=== PATIENT | female | born 1935 | race Caucasian/White ===

== ENCOUNTER 2019-08-30 02:15 | Observation (INO) | payer MEDICARE, MEDICAID ==
[2019-08-30 03:07] LABS: #Eosinphils 0.2 thou/uL (0.0-0.7); #Lymphocytes 4.6 thou/uL (1.20-3.40); #Monocytes 0.6 thou/uL (0.11-0.59); #Neutrophils 6.4 thou/uL (1.40-6.50); %Basophils 0.4 % (0.0-1.0); %Eosinophils 1.9 % (0.0-10.0); %Monocytes 4.9 % (0.0-10.0); %Neutrophils 53.9 % (42.0-75.0); Hemoglobin 13.4 g/dL (12.0-16.0); Mean Corpuscular HGB CONC 33.8 g/dL (32.0-36.0); Mean Corpuscular Hemoglobin 29.7 pg (27.0-31.0); Mean Corpuscular Volume 87.7 fL (78.0-98.0); Mean Platelet Volume 8.3 fL (7.4-10.4); Platelet Count 203 thou/uL (130-400); RBC Distribution Width 14.1 % (11.5-14.5); Red Blood Cell (RBC) Count 4.51 mill/uL (4.20-5.40); White Blood Cell (WBC) Count 11.8 thou/uL (4.8-10.8)
[2019-08-30 03:28] LABS: ALT (SGPT) 12 U/L (8-55); AST (SGOT) 19 U/L (5-34); Alkaline Phosphatase 188 U/L (40-110); Anion Gap 15 mmol/L (10-20); BUN (Urea Nitrogen) 9 mg/dL (9.8-20.1); Bilirubin, Total 0.6 mg/dL (0.2-1.2); Calc. Creatinine Clearance 0 mL/min (70-130); Calcium 8.2 mg/dL (7.8-10.44); Carbon Dioxide 18 mmol/L (23-31); Chloride 104 mmol/L (98-107); Estimated GFR-MDRD 48; Globulin 2.6 g/dL (2.4-3.5); Glucose 304 mg/dL (83-110); Potassium 3.7 mmol/L (3.5-5.1); Protein, Total 5.6 g/dL (6.0-8.3); Sodium 133 mmol/L (136-145)
[2019-08-30] MEDS ORDERED: Insulin Regular 300 UNITS/3 ML VIAL ONE ×2 (03:46→03:49)
--- NOTE | 2019-08-30 04:45 | PDOC.HHP ---
Hospitalist HPI - History of Present Illness hyperglycemia, dizziness, polyuria History of Present Illness: Patient is an 84 year old female, with history of insulin dependant diabetes who presents to ED via transfer from [facility] for dizziness, polyuria, hyperglycemia reported as 500 earlier today, now down to 400 at time of visit. At other ED, WBC 12k, lactic acid elevated at 3.3, she was treated for sepsis with IVF, rocephin, vancomycin. patient denies any chest pain, fever .She reports dysuria earlier, a jurado was placed at outside er, UA did not show infection. CXR was normal as well. Her vital signs are notable for tachycardia but otherwise unremarkable. patient takes insulin 25 unts lantus at night, has not missed any doses, checks sugars regularily and they are usually around 100, she does not know why any of this has happened. she reports cardiac hisotry but no current chest pain. Workup at other ED included labs with WBC 67573, Hgb 15, lactic acid 3.3, BNP 67, trop WNL, Na+ 132, K+ 3.4, CO2 21, creatinine 1.5, glu 400, alkaline phosphatase 250, UA nrml save presence of glucose; CXR NAD; EKG findings of sinus tach, no ischemia. Patient has received 2L IVF, rocephin and vancomycin in our ED. Hospitalist ROS - Review of Systems Constitutional: denies: fever, chills Eyes: denies: pain, vision change ENT: denies: throat pain, throat swelling Respiratory: denies: cough, dry Cardiovascular: denies: chest pain, palpitations Gastrointestinal: denies: nausea, vomiting, diarrhea Genitourinary: reports: frequency. denies: dysuria, incontinence Musculoskeletal: denies: neck pain, shoulder pain Skin: denies: rash, lesions Neurological: denies: weakness, numbness Other: endocrine: +polyuria, +polydypsia - Medication Medications: meTOPROLOL succinate SatAug 30, 2019 02:21 JH Bazzi, Rose TABLET, EXTENDED RELEASE 24 HR : Strength - 50 mg : ORAL Patient Dose: 50 mg Oral 2 times a day. omeprazole SatAug 30, 2019 02:21 JH Bazzi, Rose CAPSULE,DELAYED RELEASE ( ENTERIC COATED) : Strength - 20 mg : ORAL Patient Dose: 20 mg Oral once a day. allopurinol SatAug 30, 2019 02:21 JH Bazzi, Rose TABLET : Strength - 300 mg : ORAL Patient Dose: 300 mg Oral once a day. Ultram Sun Aug 30, 2019 02:22 JH Bazzi, Rose TABLET : Strength - 50 mg : ORAL Patient Dose: Unknown. Hospitalist History - Past Medical History Other Medical History: Past medical history includes cardiac history, myocardial infarction, cardiac stents, neurological disease, Lumbar disc disease. Chronic Back Pain, endocrine disease, hypoparathyroidism,history of hypertension, which has been treated, neurological disease, CVA unknown if hemorrhagic or ischemic., Notes: GOUT, HYPOTHYROID, Past medical history includes history of hyperlipidemia, high cholesterol, SEASONAL ALLERGIES, [place] X2 IN 2000 TREATED WITH 4 STENTS, STROKE IN 2006- NO DEFECITS,. - Past Surgical History Other Surgical History: Surgical history of cholecystectomy. Cardiac Stents,. - Family History Family History: reports: no pertinent history - Social History Other Social History: Patient denies alcohol use, Patient denies drug use, Patient has no smoking history. - Exam General Appearance: NAD, awake alert Eye: PERRL, anicteric sclera ENT: normocephalic atraumatic, no oropharyngeal lesions, moist mucosa Neck: supple, symmetric, no JVD, no thyromegaly, no lymphadenopathy, no carotid bruit Heart: RRR, no murmur, no gallops, no rubs, normal peripheral pulses Respiratory: CTAB, no wheezes, no rales, no ronchi, normal chest expansion, no tachypnea, normal percussion Gastrointestinal: soft, non-tender, non-distended, normal bowel sounds, no palpable masses, no hepatomegaly, no splenomegaly, no bruit Extremities: no cyanosis, no clubbing, no edema Skin: normal turgor, no lesions, no rashes Neurological: cranial nerve grossly intact, normal sensation to touch, no weakness, no focal deficits, no new deficit Musculoskeletal: normal tone, normal strength, no muscle wasting Psychiatric: normal affect, normal behavior, A&O x 3 Hospitalist Results - Labs Result Diagrams: 08/30/19 02:45 08/30/19 02:45 Lab results: WBC 11.8 thou/uL (4.8-10.8) H 08/30/19 02:45 Hgb 13.4 g/dL (12.0-16.0) 08/30/19 02:45 Hct 39.6 % (36.0-47.0) 08/30/19 02:45 MCV 87.7 fL (78.0-98.0) 08/30/19 02:45 Plt Count 203 thou/uL (130-400) 08/30/19 02:45 Neutrophils % 53.9 % (42.0-75.0) 08/30/19 02:45 Sodium 133 mmol/L (136-145) L 08/30/19 02:45 Potassium 3.7 mmol/L (3.5-5.1) 08/30/19 02:45 Chloride 104 mmol/L (98-107) 08/30/19 02:45 Carbon Dioxide 18 mmol/L (23-31) L 08/30/19 02:45 BUN 9 mg/dL (9.8-20.1) L 08/30/19 02:45 Creatinine 1.09 mg/dL (0.6-1.1) 08/30/19 02:45 Glucose 304 mg/dL (83-110) H 08/30/19 02:45 Lactic Acid 2.4 mmol/L (0.5-2.2) H 08/30/19 02:45 Calcium 8.2 mg/dL (7.8-10.44) 08/30/19 02:45 Total Bilirubin 0.6 mg/dL (0.2-1.2) 08/30/19 02:45 AST 19 U/L (5-34) 08/30/19 02:45 ALT 12 U/L (8-55) 08/30/19 02:45 Alkaline Phosphatase 188 U/L (40-110) H 08/30/19 02:45 Serum Total Protein 5.6 g/dL (6.0-8.3) L 08/30/19 02:45 Albumin 3.0 g/dL (3.4-4.8) L 08/30/19 02:45 Additional comment: BP: 107/79, Pulse: 111, Resp: 12, Temp: 98.1 (Oral), Pain: 0, O2 sat: 97 on Room Air, Time: 08/30/2019 02:22. - EKG Interpretation EKG: ED interpretation - sinus tachycardia Hospitalist H&P A/P - Problem (1) Hyponatremia Code(s): E87.1 - HYPO-OSMOLALITY AND HYPONATREMIA Status: Acute Assessment and Plan: likely pseudohyponatremia, recheck BMP now (2) Hyperglycemia Code(s): R73.9 - HYPERGLYCEMIA, UNSPECIFIED Status: Acute Assessment and Plan: start SSI and home dose of lantus, no cleare explanation for current hyperglycemic state (3) Elevated lactic acid level Code(s): R79.89 - OTHER SPECIFIED ABNORMAL FINDINGS OF BLOOD CHEMISTRY Status : Acute Assessment and Plan: I bleieve this is a type 2 lactic acidosis, no clinical sepsis. continue hydration and blood sugar management as above (4) Leukocytosis Code(s): D72.829 - ELEVATED WHITE BLOOD CELL COUNT, UNSPECIFIED Status: Acute Assessment and Plan: likely demargination or stress response, no obvious infections observed (5) Diabetes 1.5, managed as type 2 Code(s): E13.9 - OTHER SPECIFIED DIABETES MELLITUS WITHOUT COMPLICATIONS Status: Acute Assessment and Plan: start SSI, resume home dose lantus, continue hydration, sugar checks AC HS (6) Hypertension Code(s): I10 - ESSENTIAL (PRIMARY) HYPERTENSION Status: Acute Assessment and Plan: resume home medications (7) Hypothyroid Code(s): E03.9 - HYPOTHYROIDISM, UNSPECIFIED Status: Acute Assessment and Plan: resume home medications (8) Urinary retention Code(s): R33.9 - RETENTION OF URINE, UNSPECIFIED Status: Acute - Plan Plan: jurado placed at outside ER, wean once acute phase of illness over
[2019-08-30 05:50] VITALS: BMI 29.9
[2019-08-30] MEDS ORDERED: Sodium Chloride 0.9% 1,000 ML IV SCH ×2 (06:15→06:30)
[2019-08-30] MEDS ORDERED: Ondansetron PF 4 MG/2 ML Vial IVP PRN (06:18)
[2019-08-30] MEDS ORDERED: Acetaminophen 325 MG TAB PO PRN (06:18)
[2019-08-30] MEDS ORDERED: Bisacodyl 10 MG SUPP PR PRN (06:18)
[2019-08-30] MEDS ORDERED: HYDROcodone/Acetaminophen 7.5/325 mg Tablet PO PRN (06:18)
[2019-08-30] MEDS ORDERED: HYDROcodone/Acetaminophen 5/325 mg Tablet PO PRN (06:18)
[2019-08-30] MEDS ORDERED: Senokot S 8.6-50 MG TAB PO PRN (06:18)
[2019-08-30] MEDS ORDERED: Bisacodyl 5 MG TAB PO PRN (06:18)
[2019-08-30] MEDS ORDERED: traMADol HCl 50 MG TAB PO PRN (06:20)
[2019-08-30] MEDS ORDERED: Dextrose 5% in Water 1,000 ML IV PRN (06:21)
[2019-08-30] MEDS ORDERED: Dextrose 50% Abboject 50 ML SYRINGE SLOW IVP PRN (06:21)
[2019-08-30 07:25] LABS: Lactic Acid 1.4 mmol/L (0.5-2.2)
[2019-08-30 07:29] LABS: Anion Gap 12 mmol/L (10-20); BUN (Urea Nitrogen) 7 mg/dL (9.8-20.1); Calc. Creatinine Clearance 43 mL/min (70-130); Carbon Dioxide 19 mmol/L (23-31); Chloride 107 mmol/L (98-107); Estimated GFR-MDRD 56; Glucose 185 mg/dL (83-110); Potassium 3.1 mmol/L (3.5-5.1); Sodium 135 mmol/L (136-145)
[2019-08-30 07:44] LABS: Band 14 % (5-11); Eosinophils 2 % (0-10); Hemoglobin 12.7 g/dL (12.0-16.0); Lymphocytes 28 % (21-51); MDiff Complete? YES; Mean Corpuscular HGB CONC 33.5 g/dL (32.0-36.0); Mean Corpuscular Hemoglobin 29.6 pg (27.0-31.0); Mean Corpuscular Volume 88.6 fL (78.0-98.0); Mean Platelet Volume 7.8 fL (7.4-10.4); Monocytes 6 % (0-10); Neutrophil 49 % (42-75); Platelet Count 191 thou/uL (130-400); RBC Distribution Width 14.1 % (11.5-14.5); Reactive Lymphocytes 1 % (0-10); Red Blood Cell (RBC) Count 4.27 mill/uL (4.20-5.40); White Blood Cell (WBC) Count 9.7 thou/uL (4.8-10.8)
[2019-08-30] MEDS ORDERED: Enoxaparin Sodium 30 MG/0.3 ML SYRINGE SC SCH (09:00)
[2019-08-30] MEDS: Allopurinol 300 MG TAB PO SCH (09:15)
[2019-08-30] MEDS: Famotidine 20 MG TAB PO SCH (09:15)
[2019-08-30] MEDS: HumaLOG 300 UNITS/3 ML VIAL SC PRN ×2 (12:12→17:27)
[2019-08-30 12:44] LABS: Bilirubin Negative (Negative); Blood, Urine Negative (Negative); Glucose, Urine (Dipstick) 500 mg/dL (Negative); Leukocyte Negative (Negative); Nitrite Negative (Negative); Protein, Urine (Dipstick) Negative (Neg-Trace); Urobilinogen 0.2 mg/dL (Less than 2)
[2019-08-30 12:47] LABS: Clarity Clear (Clear)
[2019-08-30 12:52] LABS: Bacteria/HPF 2+ HPF (None Seen); RBC/HPF None Seen HPF (0-3); Squamous Epithelial 0-3 HPF (0-3); WBC/HPF 0-3 HPF (0-3); Yeast-Budding Rare HPF (None Seen)
[2019-08-30] MEDS ORDERED: Potassium Chloride 20 MEQ TAB PO SCH (16:45)
[2019-08-30] MEDS: Insulin Glargine 25 UNITS in Pre-Filled Syringe 1 EACH SC SCH (20:16)
[2019-08-31 06:19] LABS: Band 8 % (5-11); Hemoglobin 12.5 g/dL (12.0-16.0); Lymphocytes 48 % (21-51); MDiff Complete? YES; Mean Corpuscular HGB CONC 33.2 g/dL (32.0-36.0); Mean Corpuscular Volume 90.5 fL (78.0-98.0); Mean Platelet Volume 8.3 fL (7.4-10.4); Monocytes 4 % (0-10); Neutrophil 40 % (42-75); Platelet Count 191 thou/uL (130-400); RBC Distribution Width 14.4 % (11.5-14.5); Red Blood Cell (RBC) Count 4.15 mill/uL (4.20-5.40)
[2019-08-31 06:42] LABS: Anion Gap 12 mmol/L (10-20); BUN (Urea Nitrogen) 6 mg/dL (9.8-20.1); Calc. Creatinine Clearance 43 mL/min (70-130); Calcium 8.3 mg/dL (7.8-10.44); Carbon Dioxide 18 mmol/L (23-31); Chloride 111 mmol/L (98-107); Estimated GFR-MDRD 56; Glucose 213 mg/dL (83-110); Potassium 4.1 mmol/L (3.5-5.1); Sodium 137 mmol/L (136-145)
[2019-08-31] MEDS: Famotidine 20 MG TAB PO SCH (09:38)
[2019-08-31] MEDS: Enoxaparin Sodium 40 MG/0.4 ML SYRINGE SC SCH (09:39)
[2019-08-31] MEDS: Allopurinol 300 MG TAB PO SCH (09:39)
[2019-08-31] MEDS: HumaLOG 300 UNITS/3 ML VIAL SC PRN ×2 (12:47→19:37)
--- NOTE | 2019-08-31 15:30 | PRG ---
DATE OF SERVICE: 08/31/2019 SUBJECTIVE: The patient is seen and examined at the bedside. She does not have much complaints to offer. She feels good. OBJECTIVE: VITAL SIGNS: Blood pressure is 125/60, pulse is 69, respiratory rate is 20, O2 saturation 98% on room air, and her temperature is 98 and maximal temperature is 99.0. HEENT: Her head is atraumatic and normocephalic. Eyes are PERRLA. Sclerae are nonicteric. Oral mucosa is moist. NECK: Supple. LUNGS: Clear. HEART: S1 and S2 normal. No S3. No S4. ABDOMEN: Soft, nontender, and nondistended. EXTREMITIES: 1+ peripheral edema similar bilaterally in the lower extremities. NEUROLOGIC: She is following my commands. She moves all 4 extremities. There is no any motor deficit. LABORATORY DATA: Labs showed white count of 9.0, hemoglobin 12.5, hematocrit 37.6, platelet count is 191,000. Sodium is 137, potassium 4.1, chloride 111, CO2 of 18, BUN 6, and creatinine 0.95. Glycemia is ranging from 183 to 368. Urine culture negative. IMPRESSION: 1. Hyperglycemia. The patient is put back on 15 units of insulin Humulin R before each meal and she will continue her 25 units of the long-acting at night. 2. Leukocytosis, resolved. 3. Diabetes mellitus, type 2. 4. Hypertension. 5. Hypothyroidism. 6. Urinary retention. PLAN: Plan is to discontinue Nickerson catheter. Start her on Humulin R 15 units before each meal. Continue her long-acting insulin at 25 units at bedtime. Her urine culture came back negative and I do not think there was any sepsis. Her two blood cultures drawn in the emergency room came back negative. We will keep her overnight to stabilize her glycemia since it is still running around 250, 300 and above, and as soon as adjustments are made, she can be discharged home. Job ID: [id number]
[2019-08-31] MEDS: Insulin Regular 300 UNITS/3 ML VIAL SC SCH (17:12)
[2019-08-31] MEDS: Insulin Glargine 25 UNITS in Pre-Filled Syringe 1 EACH SC SCH (19:41)
[2019-09-01] MEDS: Enoxaparin Sodium 40 MG/0.4 ML SYRINGE SC SCH (07:47)
[2019-09-01] MEDS: Insulin Regular 300 UNITS/3 ML VIAL SC SCH ×2 (08:54→10:39)
[2019-09-01] MEDS: Famotidine 20 MG TAB PO SCH (08:55)
[2019-09-01] MEDS: Allopurinol 300 MG TAB PO SCH (08:55)
[2019-09-01] MEDS: HumaLOG 300 UNITS/3 ML VIAL SC PRN (10:37)
[2019-09-01 11:32] VITALS: BP 128/60; TEMP 97.9
--- NOTE | 2019-09-01 18:33 | DIS ---
DATE OF ADMISSION: 08/30/2019 DATE OF DISCHARGE: 09/01/2019 DISCHARGE DISPOSITION: To home. PRIMARY DISCHARGE DIAGNOSIS: Diabetes mellitus type 2, uncontrolled. SECONDARY DISCHARGE DIAGNOSES: History of myocardial infarction with prior stent, lumbar disk disease with chronic back pain, hypoparathyroidism, hypertension, history of prior cerebrovascular accident, gout, hypothyroidism, dyslipidemia. PROCEDURES DONE DURING HOSPITALIZATION: Blood cultures x2, no growth. Urine culture, no growth. Initial white count of 12 with discharge numbers of 9, H and H 12 and 37, platelet count 191, MCV is 90. Discharge fingerstick glucose is ranging from 87-276. BNP 64 is initial serum glucose was 406. DISCHARGE MEDICATIONS: 1. Allopurinol 300 mg p.o. daily. 2. Lantus home dose as before. 3. Metoprolol extended release 50 mg twice daily. 4. Omeprazole 20 mg daily. 5. Ultram p.r.n. for pain. ALLERGIES: NO KNOWN DRUG ALLERGIES. DISCHARGE PLAN: The patient to check fingerstick glucose twice daily and record for a period of 10 days to follow up with her primary care physician for changes in her diabetic medication. She needs to follow up with her primary care physician Dr. Lennox Bravo in [facility]. BRIEF COURSE DURING HOSPITALIZATION: The patient initially got admitted on the for increasing urination, frequency, and dizziness. Her initial fingerstick glucose was more than 400. She normally takes 25 units at night. She had a complete workup for possible infections and they have all been negative. Her fingerstick glucose is fairly stable at the time of discharge. She is advised to check fingerstick glucose twice daily for a period of 10 days and record to follow up with primary care physician for changes in her medication. She is ambulating and eating well prior to discharge. She was counseled with regards to dietary compliance. I have counseled her to see her primary care physician, Dr. Lennox Bravo in a week. Please note, I have seen and examined the patient on the day of discharge. She likely is noncompliant with her lantus. Job ID: [id number] [facility]
== END 2019-09-01 12:26 | disposition home or self-care (01) ==
LOC: ERS 02:15 → ONC 03:45
PROVIDERS: ADMIT Internal Medicine; ATTEND Internal Medicine
DX: E11.65 Type 2 diabetes mellitus with hyperglycemia (principal); I10 Essential (primary) hypertension; D72.829 Elevated white blood cell count, unspecified; E03.9 Hypothyroidism, unspecified; R33.9 Retention of urine, unspecified; E87.1 Hypo-osmolality and hyponatremia; R79.89 Other specified abnormal findings of blood chemistry; I25.2 Old myocardial infarction; Z79.4 Long term (current) use of insulin; Z79.899 Other long term (current) drug therapy
CPT/HCPCS: 80048 ×2; 80053; 81001; 82962 ×3; 83605; 83880; 85007 ×2; 85025; 85027 ×2; 87086; 96372; 96374; 97139 ×5; 99285; G0378 ×4; 36415; 36416; J1650; J1815

== ENCOUNTER 2019-11-04 21:29 | Inpatient (IN) | payer MEDICARE, MEDICAID ==
[2019-11-05 01:14] VITALS: BMI 23.6
--- NOTE | 2019-11-05 01:46 | PDOC.HHP ---
Hospitalist HPI - History of Present Illness Jaundice History of Present Illness: Patient is an 84 year old with PMH including IDDM who presents for gradual onset of jaundice, patient visibly jaundiced to head and eyes, went to [facility], where labs revealed Tbili of 22, AST 121, ALT 83, alk phos 976, CT abdomen performed revealing suspected uncinate pancreatic mass 3.2x2.2cm in size. severe intrahepatic dilation noted as well, with dilation of CBD and pancreatic duct. There were also lung nodules with largest in RLL measuring 1.4cm. Overall suspicious for metastatic cancer per radiology report. Patinet feels normal besides the jaundice, no abdominal pain/nausea/vomiting/ melena/hematochezia, no shortness of breath or chest pain. I discussed consultations I plan to order, including GI for possible biliary stent for obstructive jaundice. Patient stated at that point that she did not want any procedures, but was willing to talk to specialists to hear options. Hospitalist ROS - Review of Systems Constitutional: denies: fever, chills Eyes: reports: other (yellow eyes). denies: pain ENT: denies: nose pain, throat pain Respiratory: denies: cough, shortness of breath Cardiovascular: denies: chest pain, palpitations Gastrointestinal: reports: other (jaundice). denies: nausea, vomiting, abdominal pain, diarrhea, constipation, melena, hematochezia Genitourinary: denies: dysuria, frequency Musculoskeletal: denies: neck pain, shoulder pain, foot pain Skin: reports: chandler. denies: rash, lesions Neurological: denies: weakness, numbness, seizures All other systems reviewed; all pertinent +/- noted in HPI/Subj Hospitalist History - Past Medical History Other Medical History: Past medical history includes cardiac history, myocardial infarction, cardiac stents, neurological disease, Lumbar disc disease. Chronic Back Pain, endocrine disease, hypoparathyroidism,history of hypertension, which has been treated, neurological disease, CVA unknown if hemorrhagic or ischemic., Notes: GOUT, HYPOTHYROID, Past medical history includes history of hyperlipidemia, high cholesterol, SEASONAL ALLERGIES, [place] X2 IN 2000 TREATED WITH 4 STENTS, STROKE IN 2006- NO DEFECITS,. - Past Surgical History Other Surgical History: Surgical history of cholecystectomy. Cardiac Stents,. - Family History Other Family History: Family History: reports: no pertinent history - Social History Other Social History: Patient denies alcohol use, Patient denies drug use, Patient has no smoking history. - Exam General Appearance: NAD, awake alert Eye: PERRL, scleral icterus ENT: normocephalic atraumatic, moist mucosa Neck: supple, no JVD Heart: RRR, no murmur, no gallops Respiratory: CTAB, no wheezes, no rales Gastrointestinal: soft, non-tender, non-distended, normal bowel sounds Extremities: no cyanosis, no clubbing, no edema Skin - other findings: jaundiced througout Neurological: cranial nerve grossly intact, normal sensation to touch, no weakness, no focal deficits, no new deficit Psychiatric: normal affect, normal behavior, A&O x 3 Hospitalist Results - Labs Lab results: outside labs and imaging reviewed, see HPI Hospitalist H&P A/P - Plan Plan: Patient is an 84 year old female with PMH IDDM, HTN, hypothyroid admitted for jaundice, being treated for: # acute liver failure - appears obstructive w/ cholestatic pattern of LFTs and CT findings of pancreatic mass w/ significant duct dilation # pancreatic mass - admitted to floor as transfer, consult GI and oncology and palliative care team # lung nodules - suspicious for metastatic disease, consult oncology and palliative care team # IDDM - continue home meds once med rec complete # HTN - continue home meds once med rec complete, PRNs ordered # hypothyroidism - continue home meds once med rec complete
[2019-11-05] MEDS ORDERED: HYDROcodone/Acetaminophen 5/325 mg Tablet PO PRN (02:12)
[2019-11-05] MEDS ORDERED: Acetaminophen 325 MG TAB PO PRN (02:12)
[2019-11-05] MEDS ORDERED: Bisacodyl 5 MG TAB PO PRN (02:12)
[2019-11-05] MEDS ORDERED: Loperamide HCl 2 MG CAP PO PRN (02:12)
[2019-11-05] MEDS ORDERED: Dextrose 5% in Water 1,000 ML IV PRN (02:12)
[2019-11-05] MEDS ORDERED: Bisacodyl 10 MG SUPP PR PRN (02:12)
[2019-11-05] MEDS ORDERED: Dextrose 50% Abboject 50 ML SYRINGE SLOW IVP PRN (02:12)
[2019-11-05] MEDS ORDERED: Promethazine HCl 12.5 MG in Sodium Chloride 0.9% 50 ML IVPB PRN (02:15)
[2019-11-05] MEDS ORDERED: hydrALAZINE 20 MG/ML VIAL SLOW IVP PRN (02:15)
[2019-11-05] MEDS ORDERED: Ondansetron PF 4 MG/2 ML Vial IVP PRN (02:15)
[2019-11-05] MEDS ORDERED: cloNIDine 0.1 MG TAB PO PRN (02:15)
[2019-11-05] MEDS ORDERED: Morphine 2 MG/ML SYRINGE SLOW IVP PRN (02:15)
[2019-11-05 06:10] LABS: Prothrombin Time 13.2 SEC (12.0-14.7)
[2019-11-05 06:22] LABS: Hemoglobin 12.4 g/dL (12.0-16.0); Mean Corpuscular Hemoglobin 30.7 pg (27.0-31.0); Mean Corpuscular Volume 90.1 fL (78.0-98.0); Mean Platelet Volume 9.8 fL (7.4-10.4); Platelet Count 247 thou/uL (130-400); RBC Distribution Width 19.1 % (11.5-14.5); Red Blood Cell (RBC) Count 4.03 mill/uL (4.20-5.40); White Blood Cell (WBC) Count 11.3 thou/uL (4.8-10.8)
[2019-11-05 06:25] LABS: Band 7 % (5-11); Eosinophils 2 % (0-10); Lymphocytes 22 % (21-51); MDiff Complete? YES; Metamyelocyte 1 % (0-0); Monocytes 1 % (0-10); Myelocyte 1 % (0-0); Neutrophil 66 % (42-75); Platelet Morphology Comment Appears Adequate; Polychromasia SLIGHT = 2-3 cells (100X) (0-2/hpf); Target Cells SLIGHT = 2-5 cells (100X) (0-1/hpf)
[2019-11-05 06:29] LABS: ALT (SGPT) 69 U/L (8-55); AST (SGOT) 103 U/L (5-34); Albumin 2.4 g/dL (3.4-4.8); Alkaline Phosphatase 872 U/L (40-110); Anion Gap 13 mmol/L (10-20); BUN (Urea Nitrogen) 13 mg/dL (9.8-20.1); Bilirubin, Total 20.5 mg/dL (0.2-1.2); Calc. Creatinine Clearance 44 mL/min (70-130); Calcium 8.1 mg/dL (7.8-10.44); Carbon Dioxide 16 mmol/L (23-31); Chloride 104 mmol/L (98-107); Estimated GFR-MDRD 62; Glucose 282 mg/dL (83-110); Phosphorus 2.1 mg/dL (2.3-4.7); Potassium 3.4 mmol/L (3.5-5.1); Protein, Total 5.1 g/dL (6.0-8.3); Sodium 130 mmol/L (136-145)
[2019-11-05 06:53] LABS: Bilirubin, Direct 14.5 mg/dL (0.1-0.3)
[2019-11-05] MEDS: Enoxaparin Sodium 40 MG/0.4 ML SYRINGE SC SCH (07:57)
[2019-11-05] MEDS: HumaLOG 300 UNITS/3 ML VIAL SC PRN ×2 (11:28→20:52)
--- NOTE | 2019-11-05 15:38 | CON ---
DATE OF CONSULTATION: REASON FOR CONSULTATION: Pancreatic mass. HISTORY OF PRESENT ILLNESS: Ms. Velasquez is an 84-year-old female, who presented to her primary care in [place], [place] and was noted to be severely jaundiced. She was then referred to the [facility]. She underwent routine labs, which showed a bilirubin of 20. She then had a CT of her abdomen and pelvis. There was severe intrahepatic and extrahepatic biliary dilatation. She had a 3.2-cm mass in the alternate process of the pancreas. She had abnormal mucosal thickening of the duodenal sweep in the region of the ampulla. She had osteoporotic compression fractures of T10, T11, T12, L1, L2, L3, and L4 vertebral bodies. She was transferred to this facility for further workup. We were asked to see the patient regarding diagnosis. The patient was seen at bedside. She had no complaints at this time. Her daughter was at bedside. PAST MEDICAL HISTORY: CHF, hypertension, diabetes, hypercholesterolemia, GERD, anxiety, hypothyroidism, and OR. PAST SURGICAL HISTORY: Cardiac stent placement. ALLERGIES: NO KNOWN DRUG ALLERGIES. HOME MEDICATIONS: 1. Metoprolol. 2. Insulin. 3. Prilosec. 4. Tramadol. 5. Allopurinol. 6. Potassium. FAMILY HISTORY: Her son from colon cancer. SOCIAL HISTORY: Single, has 4 children. Lives with her daughter and 8th granddaughter. No alcohol, tobacco, or illicit drug use. REVIEW OF SYSTEMS: Ten-point review of systems is negative. PHYSICAL EXAMINATION: VITAL SIGNS: Temperature is 98.5, pulse is 91, respiratory rate 18, blood pressure is 100/65, and she is 94% on room air. GENERAL: This is a jaundiced female, in no acute distress. HEENT: Normocephalic, atraumatic. Pupils are equal and reactive to light. Sclera are icteric. NECK: Supple. CARDIOVASCULAR: Regular rate and rhythm. LUNGS : Respiratory is unlabored. ABDOMEN: Distended. EXTREMITIES: No clubbing or cyanosis. SKIN: Jaundice. NEUROLOGICAL: Nonfocal. PERTINENT LABS AND X-RAYS: Current WBC is 11.3, hemoglobin 12.4, hematocrit 36.3, platelet count is 247,000, she got 66% neutrophils, 7% bands, 22% lymphocytes. PT is 13.2, INR is 1.0. Sodium is 130, potassium 3.4, chloride 104, CO2 of 16, BUN is 13, creatinine 0.87, calcium is 8.1, phosphorus 2.1, bilirubin is 20.5, direct bilirubin is 14.5, AST is 103, ALT 69, alkaline phosphatase is 72, serum total protein 5.1, and albumin 2.4. ASSESSMENT: Pancreatic mass with biliary obstruction and jaundice. DISCUSSION: The patient was seen at bedside with daughter present. We discussed biliary stent placement and biopsy. The patient adamantly refused for even stent placement. She did not want to discuss anything further, but stated she wants to go home on hospice. I did briefly discuss what would be the normal process with the daughter including stent biopsy and then treatment likely with chemotherapy. Our clinic information was provided. If the patient change her mind, we will have case management set up hospice at home. Thank you for the consult. Job ID: [id number]
--- NOTE | 2019-11-05 17:10 | PDOC.HOSPP ---
- Subjective Encounter Date: 11/05/19 Encounter Time: 09:40 Subjective: awake, no abd pain or itching now - Objective Vital Signs & Weight: Vital Signs (12 hours) Temp Pulse Resp BP Pulse Ox 11/05/19 11:30 98.0 F 96 18 111/59 L 95 11/05/19 08:00 98.5 F 91 18 100/65 94 L 11/05/19 07:59 83 Weight Weight 129 lb 2 oz I&O: 11/04/19 11/05/19 11/06/19 06:59 06:59 06:59 Intake Total 480 Balance 480 Result Diagrams: 11/05/19 05:48 11/05/19 05:48 Additional Labs: Accuchecks 11/05/19 11/05/19 11/05/19 16:31 11:24 06:06 POC Glucose 190 H 348 H 303 H Hospitalist ROS - Medication Medications: Active Medications Generic Name Dose Route Start Last Admin Trade Name Freq PRN Reason Stop Dose Admin Enoxaparin Sodium 40 mg 11/05/19 09:00 11/05/19 07:57 Lovenox SC 40 mg 0900 MERY Administration Hydralazine HCl 10 mg 11/05/19 02:15 11/05/19 07:59 Apresoline SLOW IVP 10 mg Q6H PRN Administration SBP GREATER THAN 160 Insulin Human Lispro 0 units 11/05/19 02:12 11/05/19 11:28 Humalog SC 10 unit .MODERATE SLIDING SC PRN Administration Moderate Correctional Scale Lactulose 30 gm 11/05/19 09:00 11/05/19 08:00 Lactulose PO 30 gm DAILY MERY Administration Ondansetron HCl 4 mg 11/05/19 02:15 11/05/19 09:26 Zofran IVP 4 mg Q6H PRN Administration Nausea/Vomiting use 1st Pantoprazole Sodium 40 mg 11/05/19 09:00 11/05/19 07:59 Protonix PO 40 mg DAILY MERY Administration - Exam General Appearance: awake alert Eye: scleral icterus ENT: no oropharyngeal lesions, moist mucosa Neck: supple, no JVD Heart: RRR, no murmur Respiratory: no wheezes, no rales Gastrointestinal: soft, non-tender, non-distended, normal bowel sounds Extremities: no clubbing, no edema Neurological: cranial nerve grossly intact, no focal deficits Psychiatric: normal affect, A&O x 3 Hosp A/P (1) Pancreatic mass Status: Acute (2) Obstructive jaundice Code(s): K83.1 - OBSTRUCTION OF BILE DUCT Status: Acute (3) DM type 2 (diabetes mellitus, type 2) Status: Chronic Qualifiers: Diabetes mellitus termite treater helper insulin use: with termite treater helper use (4) Hypertension Code(s): I10 - ESSENTIAL (PRIMARY) HYPERTENSION Status: Chronic Qualifiers: Hypertension type: essential hypertension Qualified Code(s): I10 - Essential (primary) hypertension (5) Hypothyroid Code(s): E03.9 - HYPOTHYROIDISM, UNSPECIFIED Status: Chronic Qualifiers: Hypothyroidism type: unspecified Qualified Code(s): E03.9 - Hypothyroidism , unspecified (6) CAD (coronary artery disease) Code(s): I25.10 - ATHSCL HEART DISEASE OF [place] CORONARY ARTERY W/O ANG PCTRS Status: Chronic Qualifiers: Coronary Disease-Associated Artery/Lesion type: [place] artery [place] vs. transplanted heart: [place] heart Associated angina: without angina Qualified Code(s): I25.10 - Atherosclerotic heart disease of [place] coronary artery without angina pectoris (7) Dyslipidemia Code(s): E78.5 - HYPERLIPIDEMIA, UNSPECIFIED Status: Chronic - Plan d/w patient, daughter and grand daughter at bedside she does not want any active treatment done including biliary stent/per cut biliary drain or biopsy is DNAR, discussed at bedside is considering hospice at home may dc anytime if above is set up
--- NOTE | 2019-11-05 22:46 | CON ---
DATE OF CONSULTATION: 11/05/2019 CHIEF COMPLAINT: Jaundice. HISTORY OF PRESENT ILLNESS: Ms. Velasquez is an 84-year-old woman, who was taken to the hospital by her family due to jaundice. She has had no nausea or vomiting or diarrhea or constipation or blood in the stool. No light colored stools. No itching or pruritus. She had blood work performed by her primary doctor, that showed elevated bilirubin of 20. She underwent CT scan of her abdomen and pelvis that showed a 3.2 cm pancreatic head mass and proximal bile duct dilation. GI was consulted to evaluate for options for biliary stenting and diagnosis. PAST MEDICAL HISTORY: 1. CHF. 2. Hypertension. 3. Diabetes mellitus. 4. Hyperlipidemia. 5. Gastroesophageal reflux disease. 6. Hypothyroidism. 7. Coronary artery disease. 8. 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 PAST SURGICAL HISTORY: Cardiac stent. FAMILY HISTORY: Positive for colon cancer in her son. SOCIAL HISTORY: No alcohol, tobacco, or drugs. ALLERGIES: NO KNOWN DRUG ALLERGIES. MEDICATIONS: Prior to admission; 1. Potassium. 2. Allopurinol. 3. Tramadol. 4. Prilosec. 5. Insulin. 6. Metoprolol. REVIEW OF SYSTEMS: Negative x10 systems reviewed except as stated in the history of present illness. PHYSICAL EXAMINATION: VITAL SIGNS: Temperature 98.0, pulse 96, respirations 18, blood pressure 111/59. GENERAL: She is in no acute distress. She is jaundiced. Alert and oriented x3. HEENT: Eyes have scleral icterus. Oropharynx is clear without lesions. No cervical or supraclavicular lymphadenopathy. LUNGS: Clear to auscultation bilaterally. HEART: Regular rate and rhythm without murmur. ABDOMEN: Soft, nontender, and nondistended. Bowel sounds are present. EXTREMITIES: No lower extremity edema. LABORATORY DATA: White blood cell count 11.3, hemoglobin 12.4, platelets 247. INR 1.0. Creatinine 0.87, bilirubin 20.5, AST 103, ALT 69, alkaline phosphatase 872, albumin 2.4. IMPRESSION: 1. Obstructive jaundice. 2. Pancreatic head mass with possible metastases to the lungs. RECOMMENDATIONS: 1. I discussed option for endoscopic retrograde cholangiopancreatography with the patient and her daughters. We discussed options for stent placement including metal Wallstent. Brushings could also be done for diagnosis. Drainage of the bile duct could potentially help relieve pruritus if that develops and also she would require drainage if she was to decide to pursue further treatment with chemotherapy. Discussed the risks and benefits of ERCP. 2. The patient has been clear in her wishes that she does not want to undergo further treatments or procedures. She is having no pain, no pruritus, and is comfortable other than the jaundice. She wants to go home and pursue palliative or hospice care. 3. We will be available if needed if she changes her mind. Please call if GI can help. Job ID: [id number]
[2019-11-06 06:17] LABS: Prothrombin Time 12.8 SEC (12.0-14.7)
[2019-11-06 06:33] LABS: ALT (SGPT) 75 U/L (8-55); AST (SGOT) 129 U/L (5-34); Albumin 2.4 g/dL (3.4-4.8); Alkaline Phosphatase 888 U/L (40-110); Anion Gap 13 mmol/L (10-20); BUN (Urea Nitrogen) 13 mg/dL (9.8-20.1); Calc. Creatinine Clearance 54 mL/min (70-130); Calcium 8.3 mg/dL (7.8-10.44); Carbon Dioxide 19 mmol/L (23-31); Chloride 104 mmol/L (98-107); Estimated GFR-MDRD 78; Glucose 144 mg/dL (83-110); Phosphorus 2.5 mg/dL (2.3-4.7); Protein, Total 5.3 g/dL (6.0-8.3); Sodium 132 mmol/L (136-145)
[2019-11-06 06:48] LABS: Band 9 % (5-11); Eosinophils 1 % (0-10); Hemoglobin 12.6 g/dL (12.0-16.0); Lymphocytes 15 % (21-51); MDiff Complete? YES; Mean Corpuscular HGB CONC 33.9 g/dL (32.0-36.0); Mean Corpuscular Hemoglobin 30.8 pg (27.0-31.0); Mean Platelet Volume 9.6 fL (7.4-10.4); Monocytes 4 % (0-10); Neutrophil 71 % (42-75); Platelet Count 213 thou/uL (130-400); RBC Distribution Width 19.1 % (11.5-14.5); Red Blood Cell (RBC) Count 4.07 mill/uL (4.20-5.40); White Blood Cell (WBC) Count 11.2 thou/uL (4.8-10.8)
[2019-11-06 06:59] LABS: Bilirubin, Direct 14.5 mg/dL (0.1-0.3)
[2019-11-06 07:55] VITALS: BP 95/57; TEMP 98
[2019-11-06] MEDS: Enoxaparin Sodium 40 MG/0.4 ML SYRINGE SC SCH (08:03)
[2019-11-06] MEDS: HumaLOG 300 UNITS/3 ML VIAL SC PRN (11:44)
--- NOTE | 2019-11-07 03:44 | DIS ---
DATE OF ADMISSION: 11/05/2019 DATE OF DISCHARGE: 11/06/2019 PRIMARY CARE PROVIDER: Dr. Lennox Bravo. DISCHARGE DIAGNOSES: 1. Pancreatic mass. 2. Obstructive jaundice. 3. Acute liver failure. 4. Lung nodules. CONDITION OF PATIENT ON THE DAY OF DISCHARGE: I assessed, Ms. Velasquez on the day of discharge. She denies any chest pain or shortness of breath. Vital signs are stable. She has scleral and cutaneous icterus. HOSPITAL COURSE: Ms. Velasquez is a pleasant 84-year-old lady, who was admitted to [facility] on November 05, 2019 for pancreatic mass. Please refer to Dr. Meek's history and physical note dated November 05 2019 for further details. She was seen by GI Service, Oncology Service and Palliative Care Service. Family and patient opted for hospice care at home. She is being discharged home for hospice at home through [facility]. 1. Post-acute care discharge followup: With [facility] and with primary care provider in 3 days. Many thanks many thanks for allowing me to participate in your patient's care. Please feel free to contact me with any questions or concerns. DISCHARGE DESTINATION: Home. TIME SPENT: Total amount of time spent coordinating this discharge: 18 minutes. Job ID: [id number]
--- NOTE | 2019-11-09 01:01 | PQF ---
HANK TRUJILLO DAVID [id number] CLINICAL DOCUMENTATION CLARIFICATION FORM: POST DISCHARGE Addendum to original discharge summary date: ____ Late entry note date: __ DATE: 11/09/19 ATTN: Al Delong Please exercise your independent, professional judgment in responding to the clarification form. Clinical indicators are provided on the bottom of this form for your review Based on your clinical judgment, can you please specify etiology of patient's jaundice? Please check appropriate box(s): [ ] Acute liver failure [ x ] Pancreatic mass [ ] Biliary obstruction [ ] Other diagnosis [ ] Unable to determine For continuity of documentation, please document condition throughout progress notes and discharge summary. Thank You. 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 All Rights Reserved [email or web address] [not provided] [email or web address]
== END 2019-11-06 13:05 | disposition hospice, home (50) | DRG 438 ==
LOC: T4-B 11-05 00:43
PROVIDERS: ADMIT Internal Medicine; ATTEND Internal Medicine
DX: K86.89 Other specified diseases of pancreas (principal); K72.00 Acute and subacute hepatic failure without coma; K83.1 Obstruction of bile duct; Z66 Do not resuscitate; E11.9 Type 2 diabetes mellitus without complications; M51.36 Other intervertebral disc degeneration, lumbar region; G89.29 Other chronic pain; E20.9 Hypoparathyroidism, unspecified; M10.9 Gout, unspecified; E03.9 Hypothyroidism, unspecified; E78.5 Hyperlipidemia, unspecified; E78.00 Pure hypercholesterolemia, unspecified; J30.2 Other seasonal allergic rhinitis; R91.1 Solitary pulmonary nodule; I11.0 Hypertensive heart disease with heart failure; I50.9 Heart failure, unspecified; K21.9 Gastro-esophageal reflux disease without esophagitis; F41.9 Anxiety disorder, unspecified; I25.10 Atherosclerotic heart disease of native coronary artery without angina pectoris; I25.2 Old myocardial infarction; Z95.5 Presence of coronary angioplasty implant and graft; Z86.73 Personal history of transient ischemic attack (TIA), and cerebral infarction without residual deficits; Z90.49 Acquired absence of other specified parts of digestive tract; Z79.4 Long term (current) use of insulin; Z79.899 Other long term (current) drug therapy
CPT/HCPCS: 36415; 36416; 80048; 80076; 84100; 85025; 85610; J0360; J1650; J2405